=== PATIENT | female | born 1995 | race Hispanic/Latino ===

== ENCOUNTER 2022-07-03 16:40 | Emergency (ER) | payer OTHER ==
[~2022-07-03] VITALS: Ht 152.4 cm; Wt 54.4 kg
[2022-07-03] MEDS ORDERED: MECL-262 PO (17:14)
[2022-07-03] MEDS ORDERED: MECLIZINE HCL 25 MG TABLET PO ONE (17:30)
[2022-07-03 17:52] VITALS: BP 124/85
== END 2022-07-03 18:12 | disposition home or self-care (01) ==
LOC: EDH 16:40
DX: R42 Dizziness and giddiness (principal); R11.0 Nausea; I10 Essential (primary) hypertension; Z86.73 Personal history of transient ischemic attack (TIA), and cerebral infarction without residual deficits
CPT/HCPCS: 99282